=== PATIENT | female | born 1980 | race Caucasian/White ===

== ENCOUNTER 2016-08-24 09:51 | Emergency (ER) | payer OTHER, SELFPAY ==
[~2016-08-24] VITALS: Ht 172.7 cm; Wt 70.3 kg
[2016-08-24 10:14] LABS: ABSOLUTE NEUTROPHILS 3.6 thou/uL (1.4-8.2); BASOPHILS 0.7 % (0.0-2.0); EOSINOPHILS 2.9 % (0.0-3.0); HEMATOCRIT 42.9 % (37.0-47.0); HEMOGLOBIN 14.2 gm/dL (12.0-15.0); MCH 28.6 pg (26.0-34.0); MCHC 33.1 % (28.0-37.0); MCV 86.6 fL (80.0-100.0); MONOCYTES 7.7 % (1.0-8.0); PLATELET COUNT 240 thou/uL (150-400); POLYS 58.7 % (36.0-66.0); RBC 4.96 mil/uL (4.20-5.00); RDW 13.6 % (10.5-14.5); WBC 6.1 thou/uL (4.0-11.0)
[2016-08-24 10:18] LABS: MANUAL DIFF NO
[2016-08-24 10:23] LABS: CALCIUM 9.2 mg/dL (8.5-10.1); CREATININE 0.8 mg/dL (0.6-1.3); POTASSIUM 4.1 mmol/L (3.5-5.1)
[2016-08-24 10:29] LABS: ALBUMIN 3.4 g/dL (3.4-5.0); TOTAL BILIRUBIN 0.4 mg/dL (<0.1-1.0); TOTAL PROTEIN 6.9 g/dL (6.4-8.2)
[2016-08-24 10:30] LABS: URINE BILIRUBIN NEGATIVE (Negative); URINE BLOOD NEGATIVE (Negative); URINE COLOR YELLOW; URINE GLUCOSE-RANDOM* NEGATIVE (Negative); URINE KETONES NEGATIVE (Negative); URINE LEUKOCYTES-REFLEX NEGATIVE (Negative); URINE PROTEIN (DIPSTICK) NEGATIVE (Negative); URINE UROBILINOGEN 0.2 E.U./dl (0.2-1.0)
[2016-08-24] MEDS ORDERED: IBUPROFEN 600600 M1 PO ×2 (13:40→13:49)
[2016-08-24] MEDS ORDERED: HYDROCODONE-AP1 EAC6 PO (13:49)
[2016-08-24 14:10] VITALS: BP 107/60
== END 2016-08-24 14:10 | disposition home or self-care (01) ==
LOC: ER 09:51
PROVIDERS: Physician Assistant
DX: R10.2 Pelvic and perineal pain (principal)